=== PATIENT | female | born 1990 | race American Indian/Alaskan Native ===

== ENCOUNTER 2017-11-28 08:28 | Emergency (ER) | payer OTHER ==
[~2017-11-28] VITALS: Ht 165.1 cm; Wt 79.8 kg
[~2017-11-28 08:28] MED LIST: COLACE100 MG; IRON1 TA1; MIRALAX510 GM PO; SENOKOT TAB1 TAB PO; ZOFRAN4 MG
== END 2017-11-28 13:35 | disposition home or self-care (01) ==
LOC: ER 08:28
DX: K52.9 Noninfective gastroenteritis and colitis, unspecified (principal)

== ENCOUNTER 2018-05-21 10:03 | Outpatient (CLI) | payer OTHER | END 2018-05-21 10:53 | disposition home or self-care (01) | LOC: NST 10:03 | DX: Z34.83 Encounter for supervision of other normal pregnancy, third trimester (principal) ==

== ENCOUNTER 2018-06-04 12:56 | Outpatient (CLI) | payer OTHER | END 2018-06-04 13:43 | disposition home or self-care (01) | LOC: NST 12:56 | DX: Z34.83 Encounter for supervision of other normal pregnancy, third trimester (principal) ==

== ENCOUNTER 2018-06-11 11:23 | Inpatient (IN) | payer OTHER ==
[~2018-06-11] VITALS: Ht 165.1 cm; Wt 90.3 kg
[2018-06-25] MEDS ORDERED: OBSTETRIX EC C1 EACH PO (17:28)
== END 2018-06-27 19:25 | disposition home or self-care (01) | DRG 785 ==
LOC: LDR 06-25 07:30 → O/R 06-25 18:48 → OB/GYN 06-25 19:11
PROVIDERS: ADMIT Obstetrics & Gynecology
PROC: 0UL70ZZ Occlusion of Bilateral Fallopian Tubes, Open Approach (ICD-10-PCS; 2018-06-25)
PROC: 4A1HXCZ Monitoring of Products of Conception, Cardiac Rate, External Approach (ICD-10-PCS; 2018-06-25)
PROC: 10D00Z1 Extraction of Products of Conception, Low, Open Approach (ICD-10-PCS; principal; 2018-06-25 07:30)
DX: O82 Encounter for cesarean delivery without indication (principal); O34.211 Maternal care for low transverse scar from previous cesarean delivery; O75.82 Onset (spontaneous) of labor after 37 completed weeks of gestation but before 39 completed weeks gestation, with delivery by (planned) cesarean section; O34.219 Maternal care for unspecified type scar from previous cesarean delivery; Z3A.39 39 weeks gestation of pregnancy; Z37.0 Single live birth; Z30.2 Encounter for sterilization

== ENCOUNTER 2019-04-07 13:01 | Emergency (ER) | payer OTHER ==
[~2019-04-07] VITALS: Ht 165.1 cm; Wt 76.7 kg
[~2019-04-07 13:01] MED LIST changes: +OBSTETRIX EC C1 EACH PO
[2019-04-07] MEDS ORDERED: WELLBUTRIN XL300 MG (13:56)
[2019-04-07] MEDS ORDERED: ZOLOFT100 MG (13:56)
== END 2019-04-07 18:37 | disposition home or self-care (01) ==
LOC: ER 13:01
DX: S52.591A Other fractures of lower end of right radius, initial encounter for closed fracture (principal); W18.09XA Striking against other object with subsequent fall, initial encounter; Y93.89 Activity, other specified; Y92.59 Other trade areas as the place of occurrence of the external cause; Y99.8 Other external cause status

== ENCOUNTER 2019-06-12 17:51 | Emergency (ER) | payer OTHER ==
[~2019-06-12] VITALS: Ht 165.1 cm; Wt 74.4 kg
[~2019-06-12 17:51] MED LIST changes: +WELLBUTRIN XL300 MG; +ZOLOFT100 MG
== END 2019-06-12 21:51 | disposition home or self-care (01) ==
LOC: ER 17:51
DX: G43.909 Migraine, unspecified, not intractable, without status migrainosus (principal)

== ENCOUNTER 2020-03-28 12:12 | Outpatient (CLI) | payer OTHER | END 2020-03-28 14:50 | disposition home or self-care (01) | LOC: NUCLEAR 12:12 | DX: M81.0 Age-related osteoporosis without current pathological fracture (principal); Z13.820 Encounter for screening for osteoporosis ==

== ENCOUNTER → 2020-08-22 | Outpatient (CLI) | payer OTHER | END | disposition home or self-care (01) | LOC: MAMO-SONO 07:15 → SONOGRAMA 07:35 | DX: R10.84 Generalized abdominal pain (principal) ==

== ENCOUNTER 2021-10-25 10:23 | Outpatient (CLI) | payer OTHER | END 2021-10-25 10:32 | disposition home or self-care (01) | LOC: SONOGRAMA 10:23 | DX: E04.1 Nontoxic single thyroid nodule (principal) ==